=== PATIENT | male | born 1990 | race Caucasian/White ===

== ENCOUNTER 2024-08-15 14:38 | Emergency (ER) | payer SELFPAY ==
[2024-08-15] MEDS ORDERED: LORazepam 2 MG/ML VIAL ONE (15:30)
[2024-08-15 15:48] LABS: Sqamous Epithelial None Seen /HPF (None Seen); Urine Bacteria None Seen /HPF (<20); Urine Bilirubin NEGATIVE (Negative); Urine Blood Negative (Negative); Urine Clarity Clear (Clear); Urine Color Yellow (Yellow); Urine Crystals Unidentified Few /HPF (None Seen); Urine Culture Reflex Order NOT NEEDED; Urine Glucose NEGATIVE (Negative); Urine Ketones 2+ (Negative); Urine Microscopic Reflex YN ORDER UMIC; Urine Mucus 2+ /HPF (None Seen); Urine Nitrite NEGATIVE (Negative); Urine Protein TRACE (Negative); Urine RBC <5 /HPF (None Seen); Urine Urobilinogen Normal (Normal); Urine WBC <5 /HPF (<5)
[2024-08-15 15:52] LABS: Absolute Eosinophils 0.1 K/uL (0-0.5); Absolute Lymphocytes (CBC) 1.1 K/uL (0.7-4.9); Absolute Monocytes 0.4 K/uL (0.1-1.3); Absolute Neutrophil 6.3 K/uL (1.8-8.0); Basophils % 0.2 % (0-1.3); Eosinophils % 0.7 % (0-4.4); Hematocrit 43.6 % (39.6-49.0); Hemoglobin 15.7 g/dL (13.6-17.9); Lymphocytes % 14.4 % (15.3-44.8); MCH 31.8 pg (27.0-35.0); MCV 88.5 fL (80-100); MPV 6.6 fL (7.6-11.3); Neutrophils % 79.7 % (41.7-73.7); Nucleated Red Blood Cells % 0.1 % (0-0); Platelets 161 thou/uL (152-406); RBC Red Blood Cell Count 4.93 M/uL (4.33-5.43); Red Cell Distribution Width 13.5 % (12.1-15.2)
[2024-08-15 15:57] LABS: Barbiturates NEGATIVE (NEGATIVE); Benzodiazepines NEGATIVE (NEGATIVE); Cocaine NEGATIVE (NEGATIVE); METHAMPHETAM NEGATIVE (NEGATIVE); Methadone NEGATIVE (NEGATIVE); Opiates NEGATIVE (NEGATIVE); Phencyclidine NEGATIVE (NEGATIVE); THC Cannibis POSITIVE (NEGATIVE)
[2024-08-15 16:05] LABS: PT Prothrombin Time 11.9 SECONDS (10-13.0); Protime INR 1.05
[2024-08-15 16:31] LABS: ALT/SGPT 34 U/L (16-61); Albumin 4.2 g/dL (3.4-5.0); Albumin/Globulin Ratio 1.4 (1.1-1.8); Alkaline Phosphatase 92 U/L (45-117); BUN Blood Urea Nitrogen 12 mg/dL (7-18); Bicarbonate 27 mEq/L (21-32); Bilirubin Direct 0.2 mg/dL (0-0.2); Bilirubin Indirect, Calculated 0.6 mg/dL (0.2-0.8); Bilirubin Total 0.8 mg/dL (0.2-1.0); Globulin 3.1 g/dL (2.3-3.5); Glomerular Filtration Rate 118 ml/min (=/>90); Glucose Level 89 mg/dL (74-106); Protein, Total 7.3 g/dL (6.4-8.2); Sodium Level 139 mEq/L (136-145)
[2024-08-15 16:32] LABS: AST/SGOT 36 U/L (15-37)
[2024-08-15] MEDS ORDERED: NICOTINE 21 MG/PAT TD ONE (16:46)
--- NOTE | 2024-08-15 19:54 | ER ---
Nurse's Notes [facility] Name: Eliecer Watson Age: 34 yrs Sex: Male : 1990 Arrival Date: 08/15/2024 Time: 14:38 Bed 15 Private MD: Diagnosis: Suicidal ideations Presentation: 08/15 14:51 Chief complaint: Patient states: has been having terrible anxiety, I cannot get iw comfortable to sleep, it has gotten to the point that I fell I would be better off , he has chronic lower back discomfort and shoulders , mother states he was at [facility] and he has been like this since then, He thinks it is s side effect of the Haldol shot. 14:54 Method Of Arrival: Ambulatory iw 14:54 Acuity: CHAVEZ 2 iw 14:54 Note they kept him on Depakote but took him off Haldol and benztropine , he saw an ART EDUCATION PROFESSOR iw at [facility]. 14:54 Coronavirus screen: At this time, the client does not indicate any symptoms associated iw with coronavirus-19. Ebola Screen: No symptoms or risks identified at this time. Initial Sepsis Screen: Does the patient meet any 2 criteria? No. Patient's initial sepsis screen is negative. Does the patient have a suspected source of infection? No. Patient's initial sepsis screen is negative. Risk Assessment: Do you want to hurt yourself or someone else? Patient reports desire/thoughts of hurting themselves or someone else. Provider notified. 14:57 Onset of symptoms was July 29, 2024. iw Triage Assessment: 14:55 General: Appears in no apparent distress. Behavior is anxious. iw Historical: - Allergies: 08/16 09:23 Haldol; db - PMHx: 08/15 14:55 Bipolar disorder; iw - Immunization history:: Adult Immunizations up to date. - Infectious Disease History:: Denies. - Social history:: Smoking status: unknown. Screenin:48 [facility] ED Fall Risk Assessment (Adult) History of falling in the last 3 months, ap3 including since admission No falls in past 3 months (0 pts) Confusion or Disorientation No (0 pts) Intoxicated or Sedated No (0 pts) Impaired Gait No (0 pts) Mobility Assist Device Used No (0 pt) Altered Elimination No (0 pt) Score/Fall Risk Level 0 - 2 = Low Risk Oriented to surroundings, Maintained a safe environment, Educated pt \\T\\ family on fall prevention, incl call for assistance when getting out of bed, Assessed \\T\\ reinforced patient's understanding of fall precautions, Hourly rounding (assess needs \\T\\ fall precautionary measures) done, Used ambulatory aids as needed (educated on \\T\\ assisted with). Abuse screen: Denies threats or abuse. Nutritional screening: No deficits noted. Tuberculosis screening: No symptoms or risk factors identified. Assessment: 16:41 Reassessment: Patient and/or family updated on plan of care and expected duration. Pain ap3 level reassessed. Patient is alert, oriented x 3, equal unlabored respirations, skin warm/dry/pink. General: Behavior is calm. Pain: Complains of pain in generalized body aches. Neuro: Level of Consciousness is awake, alert, obeys commands, Oriented to person, place, time, situation, Appropriate for age Gait is steady, Speech is normal. Cardiovascular: Patient's skin is warm and dry. Respiratory: Airway is patent Respiratory effort is even, unlabored, Respiratory pattern is regular, symmetrical. 17:23 Reassessment: Patient is alert, oriented x 3, equal unlabored respirations, skin aa5 warm/dry/pink. Pt requesting "more Ativan" to rest, pt reports anxiety, pt currently pacing in room, PA notified. Pt verbally reassured and notified of wait time at this time, pt verbalizes understanding. . 17:41 Reassessment: Awaiting [facility] evaluation. aa5 18:20 General: [facility] evaluating patient. ap3 18:55 Reassessment: Patient and/or family updated on plan of care and expected duration. Pain ap3 level reassessed. Patient is alert, oriented x 3, equal unlabored respirations, skin warm/dry/pink. patient laying in bed, respirations are even and unlabored at this time. 19:00 Reassessment: No changes from previously documented assessment. Patient and/or family rg5 updated on plan of care and expected duration. Pain level reassessed. Patient is alert, oriented x 3, equal unlabored respirations, skin warm/dry/pink. 19:00 General: Appears in no apparent distress. Behavior is calm, cooperative. Pain: Denies rg5 pain. Neuro: Level of Consciousness is awake, alert, obeys commands, Oriented to person, place, time, situation, Appropriate for age Reports suicidal ideation. Cardiovascular: Patient's skin is warm and dry. Respiratory: Airway is patent Respiratory effort is even, unlabored, Respiratory pattern is regular, symmetrical, Breath sounds are clear. GI: Abdomen is round non-distended, Abd is soft and non tender. : No signs and/or symptoms were reported regarding the genitourinary system. EENT: No deficits noted. Derm: Skin is intact, Skin is dry, Skin is normal, Skin temperature is warm. Musculoskeletal: Circulation, motion, and sensation intact. Range of motion: intact in all extremities. 20:00 Reassessment: No changes from previously documented assessment. Patient and/or family rg5 updated on plan of care and expected duration. Pain level reassessed. Patient is alert, oriented x 3, equal unlabored respirations, skin warm/dry/pink. 20:00 General: Appears in no apparent distress. comfortable, Behavior is calm, cooperative. rg5 21:00 Reassessment: No changes from previously documented assessment. Patient and/or family rg5 updated on plan of care and expected duration. Pain level reassessed. Patient is alert, oriented x 3, equal unlabored respirations, skin warm/dry/pink. 21:00 General: Appears in no apparent distress. comfortable. Respiratory: Airway is patent rg5 Respiratory effort is even, unlabored. 22:00 Reassessment: No changes from previously documented assessment. Patient and/or family rg5 updated on plan of care and expected duration. Pain level reassessed. Patient is alert, oriented x 3, equal unlabored respirations, skin warm/dry/pink. 22:00 General: Appears in no apparent distress. comfortable, Behavior is calm, cooperative. rg5 Respiratory: Airway is patent Respiratory effort is even, unlabored, Respiratory pattern is regular, symmetrical. 23:00 Reassessment: No changes from previously documented assessment. Patient and/or family rg5 updated on plan of care and expected duration. Pain level reassessed. Patient is alert, oriented x 3, equal unlabored respirations, skin warm/dry/pink. General: Appears in no apparent distress. comfortable, sleeping. Behavior is calm, cooperative, appropriate for age. Respiratory: Airway is patent Trachea midline Respiratory effort is even, unlabored, Respiratory pattern is regular, symmetrical. 08/16 00:00 Reassessment: No changes from previously documented assessment. Patient and/or family rg5 updated on plan of care and expected duration. Pain level reassessed. Patient is alert, oriented x 3, equal unlabored respirations, skin warm/dry/pink. General: Appears in no apparent distress. comfortable, sleeping. Behavior is calm, cooperative, appropriate for age. 01:00 Reassessment: No changes from previously documented assessment. Patient and/or family rg5 updated on plan of care and expected duration. Pain level reassessed. Patient is alert, oriented x 3, equal unlabored respirations, skin warm/dry/pink. General: Appears in no apparent distress. comfortable, sleeping. Behavior is calm, cooperative, appropriate for age. 02:05 Reassessment: No changes from previously documented assessment. Patient and/or family rg5 updated on plan of care and expected duration. Pain level reassessed. Patient is alert, oriented x 3, equal unlabored respirations, skin warm/dry/pink. General: Appears in no apparent distress. comfortable, Behavior is calm, cooperative, appropriate for age, sleeping. 07:15 Reassessment: Patient appears in no apparent distress at this time. Patient and/or db family updated on plan of care and expected duration. Pain level reassessed. PT RESTING. EASILY AROUSABLE. General: Appears in no apparent distress. comfortable, Behavior is calm, cooperative. Respiratory: Airway is patent Respiratory effort is even, unlabored, Respiratory pattern is regular, symmetrical. 07:15 Reassessment: EMS ARRIVAL FOR PATIENT TRANSPORT TO [facility]. db 08:58 Reassessment: Patient appears in no apparent distress at this time. Patient and/or db family updated on plan of care and expected duration. Pain level reassessed. Patient is alert, oriented x 3, equal unlabored respirations, skin warm/dry/pink. WALKING AROUND FINISHED EATING BREAKFAST. IN NAD. General: Appears in no apparent distress. comfortable, Behavior is calm, cooperative. Neuro: Level of Consciousness is awake, alert, obeys commands, Oriented to person, place, time, situation. 09:00 Reassessment: Patient appears in no apparent distress at this time. Patient and/or db family updated on plan of care and expected duration. Pain level reassessed. Patient is alert, oriented x 3, equal unlabored respirations, skin warm/dry/pink. PATIENT PACING AROUND. 10:00 Reassessment: Patient appears in no apparent distress at this time. Patient and/or db family updated on plan of care and expected duration. Pain level reassessed. Patient is alert, oriented x 3, equal unlabored respirations, skin warm/dry/pink. PATIENT RESTING, LYING DOWN. 11:41 Reassessment: EMS ARRIVAL FOR PATIENT TRANSPORT TO [facility]. db Psych: 08/15 15:47 [place] Suicide Severity Screening: In the past month, have you wished you were ap3 or wished you could go to sleep and not wake up? Patient responds "yes." "In the past month, have you actually had any thoughts of killing yourself?" Patient responds "yes." "In your lifetime, have you ever done anything, started to do anything, or prepared to do anything to end your life?" Patient responds "yes." Patient reports suicidal intent within 3 past months. Subjective: Patient's mood is irritable, Delusions are denied, Hallucinations are denied Having thoughts of suicide. Plan for suicide is cutting himself. Objective: Patient is cooperative, restless, Speech is normal, Affect is appropriate. Interventions: Removed personal items and placed in bag. Patient placed in hospital gown. Searched person for dangerous items. Urine collected and sent for urine drug test. Belonging list filled out. Safety Checks: Personal items have been removed. Visitors are present. Pt denies substance abuse. 08/16 07:00 Commitment: Patient will be a voluntary commitment. db 07:15 [place] Suicide Severity Screening: In the past month, have you wished you were db or wished you could go to sleep and not wake up? Patient responds "yes." "In the past month, have you actually had any thoughts of killing yourself?" Patient responds "yes." "In your lifetime, have you ever done anything, started to do anything, or prepared to do anything to end your life?" Patient responds "yes.". Subjective: Patient's mood is sad, Delusions are denied, Hallucinations are denied Having thoughts of suicide. Objective: Patient is cooperative, Speech is normal, Affect is appropriate. Interventions: Removed personal items and placed in bag. Patient placed in hospital gown. Safety Checks: Personal items have been removed. Visitors are present. Vital Signs: 08/15 14:56 BP 144 / 78; Pulse 76; Resp 19; Temp 98.6; Pulse Ox 100% on R/A; Weight 90.72 kg; iw Height 6 ft. 0 in. ; Pain 3/10; 19:55 BP 132 / 81; Pulse 79; Resp 17; Temp 98; Pulse Ox 100% on R/A; Pain 0/10; rg5 08/16 08:28 BP 125 / 74; Pulse 81; Resp 16; Temp 98; Pulse Ox 98% ; db 11:43 BP 122 / 74; Pulse 65; Resp 16; Temp 98.6; Pulse Ox 100% ; Pain 0/10; am7 08/15 14:56 Body Mass Index 27.12 (90.72 kg, 182.88 cm) iw 08/15 14:56 Pain Scale: Adult iw 19:55 Pain Scale: Adult rg5 11:43 Pain Scale: Adult am7 ED Course: 08/15 14:40 Patient arrived in ED. im 14:42 Ry Foley PA is PHCP. cp 14:42 Sue Costa MD is Attending Physician. cp 14:54 Triage completed. iw 14:56 Arm band placed on. iw 15:07 Valentine Mann, RN is Primary Nurse. ap3 15:31 Initial lab(s) drawn, by me, sent to lab. Urine collected: clean catch specimen, clear. ap3 Inserted saline lock: 20 gauge in right antecubital area, using aseptic technique. Blood collected. Flushed with 10 mL NS. 15:48 No provider procedures requiring assistance completed. ap3 15:49 Patient has correct armband on for positive identification. Placed in gown. Bed in low ap3 position. Side rails up X 1. Adult w/ patient. 16:37 called [facility] for evaluation talked to Tarun. sp 17:02 [facility] called --Rashad will be here in 1 hour +. sp 19:00 transfer approval from receiving facility. Safety Checks: Sitter present at this time. rg5 19:00 Door closed. Noise minimized. rg5 08/16 00:20 Faxed pt clinicals to [facility] for placement. rv1 01:00 Miley Rodríguez gave MOT for pt but said bed wont be ready until after noon on 08/16/24. rv1 Will fax pt clinicals to other facilities again. 03:02 Faxed pt clinicals to [facility]. rv1 07:15 Patient is placed in psych hold. db 07:16 Primary Nurse role handed off by Valentine Mann RN db 07:16 Sarika Horta, RN is Primary Nurse. db 11:37 Provided Education on: TRANSFER. db 11:37 IV discontinued, intact, bleeding controlled, No redness/swelling at site. db Administered Medications: 08/15 15:35 Drug: Ativan IVP 2 mg IVP once Route: IVP; Site: right antecubital; ap3 16:42 Follow up: Response: No adverse reaction ap3 16:48 Drug: Nicotine Transdermal Patch 21 mg/24 hr 1 patches Transdermal once Route: ap3 Transdermal; Site: affected area; 20:36 Follow up: Response: No adverse reaction rg5 20:35 Drug: Geodon IM 20 mg IM once Route: IM; Site: right deltoid; rg5 21:10 Follow up: Response: No adverse reaction 5 08/16 09:23 Drug: Diazepam PO 5 mg PO once Route: PO; db 11:37 Follow up: Response: No adverse reaction db Medication: 08/15 15:49 VIS not applicable for this client. ap3 Outcome: 19:53 ER care complete, transfer ordered by MD. 08/16 11:37 Transferred by ground EMS Transfer form completed. Note: TO [facility] db Condition: stable Instructed on the need for transfer, 12:22 Patient left the ED. la1 Signatures: Julienne Hilario Irene, RN RN iw Nohemy Manzano RN RN aa5 Luis Miguel Cote, HOTEL OR MOTEL MANAGER-C HOTEL OR MOTEL MANAGER-Cla1 Ry Foley, JAE PA cp Valentine Mann, RN RN ap3 Sarika Horta, RN RN db KumarPinky rv1 Isabel Baugh Rommel RN RN rg5 Michelle Roman am7 Corrections: (The following items were deleted from the chart) 08/15 14:57 14:54 Note they kept him on Depakote but took him off Haldol and benztropine iw iw 08/16 08:30 08:28 BP 125 / 74; Pulse 81bpm; Pulse Ox 98%; am7 db 09:24 04/17 14:55 Allergies: No Known Allergies; iw db
--- NOTE | 2024-08-15 19:54 | EDPHYS ---
Physician Documentation [facility] Name: Eliecer Watson Age: 34 yrs Sex: Male : 1990 Arrival Date: 08/15/2024 Time: 14:38 Bed 15 Private MD: ED Physician Sue Costa HPI: 08/15 15:10 This 34 yrs old Male presents to ER via Ambulatory with complaints of Psych Problem, cp Mental health Eval. 15:10 The patient presents to the emergency department with depression, suicide ideation, and cp the patient has a plan, to cut oneself and bleed. 15:10 Past psychiatric history: Prior diagnosis: bipolar disorder. cp Historical: - Allergies: 08/16 09:23 Haldol; db - PMHx: 08/15 14:55 Bipolar disorder; iw - Immunization history:: Adult Immunizations up to date. - Infectious Disease History:: Denies. - Social history:: Smoking status: unknown. ROS: 15:15 Constitutional: Negative for body aches, chills, fever, poor PO intake, cp 15:15 Cardiovascular: Negative for chest pain, palpitations, cp 15:15 Respiratory: Negative for cough, shortness of breath, wheezing, 15:15 Abdomen/GI: Negative for abdominal pain, nausea, vomiting, and diarrhea, 15:15 Neuro: Negative for altered mental status, dizziness, headache, weakness, 15:15 Psych: Positive for suicidal ideation, Negative for auditory hallucinations, visual hallucinations, homicidal ideation, suicide gesture, 15:15 All other systems are negative, Exam: 15:20 Constitutional: The patient appears in no acute distress, alert, awake, cp non-diaphoretic, non-toxic, well developed, well nourished, 15:20 Head/Face: Normocephalic, atraumatic. cp 15:20 Eyes: Periorbital structures: appear normal, Conjunctiva: normal, no exudate, no injection, Sclera: no appreciated abnormality, Lids and lashes: appear normal, bilaterally, 15:20 ENT: External ear(s): are unremarkable, Nose: is normal, Mouth: Lips: moist, Oral mucosa: moist, Posterior pharynx: Airway: no evidence of obstruction, patent, 15:20 Chest/axilla: Inspection: normal, 15:20 Cardiovascular: Rate: normal, Rhythm: regular, 15:20 Respiratory: the patient does not display signs of respiratory distress, Respirations: normal, no use of accessory muscles, no retractions, labored breathing, is not present, Breath sounds: are clear throughout, no decreased breath sounds, no stridor, no wheezing, 15:20 Abdomen/GI: Inspection: abdomen appears normal, Palpation: abdomen is soft and non-tender, in all quadrants, 15:20 Back: pain, is absent, ROM is normal, 15:20 Neuro: Orientation: to person, place \T\ time. Mentation: is normal, Cerebellar function: is grossly normal, Motor: moves all fours, strength is normal, Gait: is steady, at a normal pace, without difficulty, 19:55 ECG was reviewed by the Attending Physician. Vital Signs: 14:56 BP 144 / 78; Pulse 76; Resp 19; Temp 98.6; Pulse Ox 100% on R/A; Weight 90.72 kg; iw Height 6 ft. 0 in. ; Pain 3/10; 19:55 BP 132 / 81; Pulse 79; Resp 17; Temp 98; Pulse Ox 100% on R/A; Pain 0/10; rg5 08/16 08:28 BP 125 / 74; Pulse 81; Resp 16; Temp 98; Pulse Ox 98% ; db 11:43 BP 122 / 74; Pulse 65; Resp 16; Temp 98.6; Pulse Ox 100% ; Pain 0/10; am7 08/15 14:56 Body Mass Index 27.12 (90.72 kg, 182.88 cm) iw 08/15 14:56 Pain Scale: Adult iw 19:55 Pain Scale: Adult rg5 11:43 Pain Scale: Adult am7 MDM: 08/15 14:53 Medical Screening Exam initiated cp 16:00 Differential diagnosis: drug withdrawal. acute psychotic break, depression, psychosis cp secondary to non-compliance. 19:55 Data reviewed: vital signs, nurses notes, lab test result(s), EKG, and as a result, I cp will transfer patient for inpatient psych treatment. 19:55 I considered the following discharge prescriptions or medication management in the emergency department Medications were administered in the Emergency Department. See MAR. Independent interpretation of the following test(s) in the Emergency Department EKG: See my EKG interpretation above. Care significantly affected by the following chronic conditions: bipolar disorder. Counseling: I had a detailed discussion with the patient and/or guardian regarding the historical points, exam findings, and any diagnostic results supporting the discharge/admit diagnosis, lab results. 08/15 15:05 Order name: Acetaminophen; Complete Time: 16:33 cp 08/15 15:05 Order name: Basic Metabolic Panel; Complete Time: 16:33 cp 08/15 16:33 Interpretation: Normal except: CL 109. cp 08/15 15:05 Order name: CBC with Diff; Complete Time: 16:33 cp 08/15 15:05 Order name: ETOH Level; Complete Time: 16:33 cp 08/15 15:05 Order name: Hepatic Function; Complete Time: 16:33 cp 08/15 15:05 Order name: PT-INR; Complete Time: 16:33 cp 08/15 15:05 Order name: Ptt, Activated; Complete Time: 16:33 cp 08/15 15:05 Order name: Salicylate; Complete Time: 16:45 cp 08/15 16:45 Interpretation: Reviewed. 08/15 15:05 Order name: Urinalysis w/ reflexes; Complete Time: 16:33 cp 08/15 15:05 Order name: Urine Drug Screen; Complete Time: 16:33 cp 08/15 15:05 Order name: EKG - Nurse/Tech; Complete Time: 19:52 cp 08/15 15:05 Order name: IV Saline Lock; Complete Time: 15:31 cp 08/15 15:05 Order name: Labs collected and sent; Complete Time: 15:31 cp 08/15 15:05 Order name: Suicide Screening ([place]); Complete Time: 15:15 cp EC:55 Rate is 60 beats/min. Rhythm is regular. PA interval is normal. QRS interval is normal. cp QT interval is normal. T waves are Inverted in leads aVL, aVR. Interpreted by me. Reviewed by me. Administered Medications: 15:35 Drug: Ativan IVP 2 mg IVP once Route: IVP; Site: right antecubital; ap3 16:42 Follow up: Response: No adverse reaction ap3 16:48 Drug: Nicotine Transdermal Patch 21 mg/24 hr 1 patches Transdermal once Route: ap3 Transdermal; Site: affected area; 20:36 Follow up: Response: No adverse reaction rg5 20:35 Drug: Geodon IM 20 mg IM once Route: IM; Site: right deltoid; rg5 21:10 Follow up: Response: No adverse reaction rg5 08/16 09:23 Drug: Diazepam PO 5 mg PO once Route: PO; db 11:37 Follow up: Response: No adverse reaction db Disposition: 23:26 Chart complete. cp Disposition Summary: 08/15/24 19:53 Transfer Ordered Notes: Transfer Location: [facility] Facility cp Reason: Higher level of care cp Condition: Stable cp Problem: new cp Symptoms: have improved cp Accepting Physician: doctor(08/16/24 12:22) la1 Diagnosis - Suicidal ideations cp Forms: - Medication Reconciliation Form cp - SBAR form cp Signatures: Dispatcher [employer] EDMS Nikole Olson RN RN iw Luis Miguel Cote, ASPHALT STILL OPERATOR-C ASPHALT STILL OPERATOR-Cla1 Ry Foley PA PA cp Valentine Mann RN RN ap3 Demetrius Agrawal MD MD [id number] Sarika Horta RN RN db Otoniel Jimenes RN RN rg5 Corrections: (The following items were deleted from the chart) 08/15 15:05 15:05 ACETAMINOPHEN+C.LAB.BRZ ordered. EDMS EDMS 15:05 15:05 BASIC METABOLIC PANEL+C.LAB.BRZ ordered. EDMS EDMS 15:05 15:05 CBC+H.LAB.BRZ ordered. EDMS EDMS 15:05 15:05 ETHANOL+C.LAB.BRZ ordered. EDMS EDMS 15:05 15:05 HEPATIC FUNCTION+C.LAB.BRZ ordered. EDMS EDMS 15:05 15:05 PROTIME (+INR)+COAG.LAB.BRZ ordered. EDMS EDMS 15:05 15:05 PTT, ACTIVATED+COAG.LAB.BRZ ordered. EDMS EDMS 15:05 15:05 SALICYLATE+C.LAB.BRZ ordered. EDMS EDMS 15:05 15:05 Urinalysis+U.LAB.BRZ ordered. EDMS EDMS 15:05 15:05 URINE DRUG SCREEN+UC.LAB.BRZ ordered. EDMS EDMS 16:40 15:10 The patient presents to the emergency department with suicide ideation, and the cp patient has a plan, to cut oneself and bleed, insomnia, cp 08/16 09:24 04/17 14:55 Allergies: No Known Allergies; db 08/16 12:22 08/15 19:53 doctor cp la1
[2024-08-15] MEDS ORDERED: ZIPRASIDONE MESYLA 20 MG/VIAL IM ONE (20:29)
[2024-08-16] MEDS ORDERED: DIAZEPAM 5 MG TABLET ONE (09:21)
[2024-08-16 12:32] VITALS: BP 122/74; TEMP 98.6; O2SAT 100
== END 2024-08-16 12:22 ==
LOC: ER 14:38
DX: R45.851 Suicidal ideations (principal); F31.9 Bipolar disorder, unspecified
CPT/HCPCS: 36415; 80048; 80076; 80143; 80179; 80307; 81001; 82077; 85025; 85610; 85730; 93005; 96372; 96374; 99285; J3486